=== PATIENT | male | born 1970 | race Caucasian/White ===

== ENCOUNTER 2021-12-04 11:08 | Emergency (ER) | payer OTHER ==
[~2021-12-04] VITALS: Ht 180.3 cm; Wt 131.5 kg
[2021-12-04 11:08] VITALS: BP_SYST 125
[2021-12-04 13:18] LABS: HEMATOCRIT 47.1 % (36-54); MEAN CORPUSCULAR HEMOGLOBIN 31 pg (27-31); MEAN CORPUSCULAR HGB CONC 34 % (32-36); MEAN CORPUSCULAR VOLUME 91 fL (79.0-98.0); PLATELET COUNT (AUTO) 162 K/uL (130-430); RED CELL DISTRIBUTION WIDTH 14.5 % (9.0-15.0)
[2021-12-04 13:46] VITALS: BP_SYST 139
== END 2021-12-04 13:46 | disposition home or self-care (01) ==
LOC: SED 11:08
DX: I83.891 Varicose veins of right lower extremity with other complications (principal)
CPT/HCPCS: 36415; 83051; 85014; 85048; 85049-TC; 99283